=== PATIENT | male | born 1950 | race Caucasian/White ===

== ENCOUNTER 2020-02-14 22:51 | Emergency (ER) | payer MEDICARE, BC ==
[~2020-02-14] VITALS: Ht 177.8 cm; Wt 77.3 kg
[2020-02-14 22:53] VITALS: TEMP 98
[2020-02-14] MEDS ORDERED: LITHIUM CA150 MG/CAP (22:57)
[2020-02-14] MEDS ORDERED: XANAX 0.5MG0.5 MG PO (22:57)
[2020-02-15 01:00] VITALS: BP 124/76; PULSE 64
[2020-02-15] MEDS ORDERED: FLEXERIL5 MG PO (01:17)
[2020-02-15] MEDS ORDERED: NORCO 325 MG-51 TAB PO (01:17)
== END 2020-02-15 01:20 | disposition home or self-care (01) ==
LOC: COL.ER 22:51
DX: S70.01XA Contusion of right hip, initial encounter (principal); S20.211A Contusion of right front wall of thorax, initial encounter; S60.211A Contusion of right wrist, initial encounter; R40.2412 Glasgow coma scale score 13-15, at arrival to emergency department; W11.XXXA Fall on and from ladder, initial encounter
CPT/HCPCS: J1885; J7040